=== PATIENT | male | born 1985 | race Caucasian/White ===

== ENCOUNTER 2016-11-27 15:23 | Emergency (ER) | payer OTHER ==
--- NOTE | 2016-11-27 17:23 | EDDOCDS ---
Nurse's Notes [facility] Name: Yony Cook Age: 31 yrs Sex: Male : 1985 Arrival Date: 11/27/2016 Time: 15:23 Bed I9 / 22 [facility] Diagnosis: Internal derangement of knee Presentation: 11/27 15:27 Presenting complaint: Patient states: Right knee injury while snowboarding yesterday. rs3 pain with walking and feels wobbly. Adult Sepsis Screening: The patient does not have new or worsening altered mentation. Patient's respiratory rate is less than 22. Systolic blood pressure is greater than 100. Patient has a qSOFA score of 0- Negative Sepsis Screen. Suicide/Homicide risk assessment- the patient denies having any suicidal and/or homicidal ideations and does not present with any other emotional, behavioral or mental health complaints. 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 Transition of care: patient was not received from another setting of care. 15:27 Acuity: CHELY Level 4 rs3 15:27 Method Of Arrival: Walkin/Carried/Asstd rs3 Triage Assessment: 15:30 General: Appears in no apparent distress. Pain: Location: right knee. Pt Declines HIV rs3 testing. The patient is triaged at the bedside. See Assessment in Nurses Notes section of ED record. The patient is triaged at the bedside. See Assessment in Nurses Notes section of ED record. Historical: - Allergies: mucomist (Swelling); - Home Meds: 1. none - PMHx: none; - PSHx: L collar bone surgery; - Social history: Smoking status: Patient uses tobacco products, light tobacco smoker. No barriers to communication noted, The patient speaks fluent Malian. - Family history: Not pertinent. - : The pt / caregiver states he / she is not on anticoagulants. Home medication list is obtained from. - Exposure Risk Screening:: None identified. Screenin:20 Screening information is obtained from the patient. Fall risk: At risk due to prior [facility] history of falls. Assistance ADL's: requires no assistance with activities of daily living. Abuse/DV Screen: The patient / caregiver reports he/she is: not in a situation that causes fear, pain or injury. Nutritional screening: No deficits noted. Advance Directives: Currently, there is no health care proxy. There is no active DNR order. There is no living will. There is no Power of Director Of Digital Platforms. home support is adequate. Assessment: 16:15 General: Patient ambulated to room with Marilee Fuentes RN. Musculoskeletal: Range of jmb motion intact in all extremities. 17:20 General: Patient instructed on discharge instructions. Patient asked if there were any jmb questions regarding discharge, patient stated no. Patient signed discharge instructions. Patient discharged in stable condition. . Vital Signs: 15:25 BP 153 / 79; Pulse 89; Resp 18 S; Temp 97.3; Pulse Ox 100% on R/A; Weight 104.33 kg dd6 (R); Height 74 in. (187.96 cm) (R); 17:20 BP 148 / 70; Pulse 88; Resp 18; Temp 98.0(O); Pulse Ox 99% on R/A; Pain 2/10; jmb 15:25 Body Mass Index 29.53 (104.33 kg, 187.96 cm) dd6 Vitals: 15:25 Log In Time: November 27, 2016 at 15:23. dd6 ED Course: 15:25 Patient visited by Dago Desai PCA. dd6 15:25 [facility], JUDY MELARA is Private Physician. dd6 15:25 Patient moved to Waiting dd6 15:26 Patient moved to Pre RCE dd6 15:29 Triage Initiated rs3 16:09 Patient moved to I9 / 22 jjr 16:12 [facility] ke 16:12 Patient visited by Ky Lei FNP. ke 16:12 Patient visited by Ky Lei FNP. ke 16:44 Patient visited by Ky Lei FNP. ke 17:08 Patient visited by Ky Lei FNP. ke 17:11 [facility] ke 17:16 [facility] [place] was scanned into [employer] and attached to record. zo 17:20 The patient / caregiver is instructed regarding the plan of care and ED course. jmb 17:20 No IV's were initiated during this patient's visit. No procedures done that require jmb assistance. Order Results: There are currently no results for this order. Outcome: 17:12 Discharge ordered by Provider. ke 17:20 Discharge Assessment: Patient awake, alert and oriented x 3. No cognitive and/or jmb functional deficits noted. Patient verbalized understanding of disposition instructions. Patient awake and alert. obeys commands, Oriented to person, place and time. Patient verbalized understanding of disposition instructions. Patient has no functional deficits. patient administered narcotics - no. The following High Risk Discharge criteria are identified: None. Discharged to home ambulatory, with crutches. Condition: stable. Discharge instructions given to patient, Instructed on discharge instructions, follow up and referral plans. medication usage, crutch walking, Demonstrated understanding of instructions, crutch walking, medications, Pt was receptive of discharge instructions/ teaching. Prescriptions given X 1. No special radiology studies were completed. Property sent home with patient. 17:22 Patient left the ED. nani Signatures: Ky Lei, WELLNESS TRAINER WELLNESS TRAINER Andrew Landa Jessica, RN RN jjr Dago Desai, COKEMAN COKEMAN dd6 Rosita Patricio,RN RN rs3 Jagjit Hurd,RN RN nani MTDD
--- NOTE | 2016-11-27 17:23 | EDDOCDS ---
Physician Documentation [facility] Name: Yony Cook Age: 31 yrs Sex: Male : 1985 Arrival Date: 11/27/2016 Time: 15:23 Bed I9 / 22 Private MD: JUDY BHATIA Disposition: 11/27/16 17:12 Discharged to Home/Self Care. Impression: Internal derangement of knee. - Condition is Stable. - Discharge Instructions: Knee Immobilizer, Knee Sprain, Crutch Use, [id number]. - Prescriptions for Ibuprofen 600 mg Oral Tablet - take 1 tablet by ORAL route every 6 hours As needed take with food; 30 tablet. - Medication Reconciliation, Local Pharmacy Hours form. - Follow up: Orthopaedics, [facility]; When: Call to arrange an appointment; Reason: Further diagnostic work-up, Continuance of care. - Problem is new. - Symptoms are unchanged. Historical: - Allergies: mucomist (Swelling); - Home Meds: 1. none - PMHx: none; - PSHx: L collar bone surgery; - Social history: Smoking status: Patient uses tobacco products, light tobacco smoker. No barriers to communication noted, The patient speaks fluent Vincentian. - Family history: Not pertinent. - : The pt / caregiver states he / she is not on anticoagulants. Home medication list is obtained from. - Exposure Risk Screening:: None identified. Vital Signs: 11/27 15:25 BP 153 / 79; Pulse 89; Resp 18 S; Temp 97.3; Pulse Ox 100% on R/A; Weight 104.33 kg / dd6 230.01 lbs (R); Height 74 in. (187.96 cm) (R); 17:20 BP 148 / 70; Pulse 88; Resp 18; Temp 98.0(O); Pulse Ox 99% on R/A; Pain 2/10; jmb 15:25 Body Mass Index 29.53 (104.33 kg, 187.96 cm) dd6 MDM: 16:21 Knee, Complete Ordered. EDMS 17:04 Financial registration complete. zo 17:08 Knee Immobilizer ordered. ke 17:08 Crutches ordered. ke 17:16 [facility] Payment Agreement was scanned into [employer] and attached to record. zo Signatures: Dispatcher [employer] EDMS Ky Lei, HYPO DIPPER HYPO DIPPER Andrew Landa RosemaryRN RN rs3 Jagjit HurdRN RN jmb The chart was reviewed and I authenticate all verbal orders and agree with the evaluation and treatment provided.Attachments: 17:16 [facility] Payment Agreement zo MTDD
--- NOTE | 2016-11-28 11:24 | REP ---
Right knee five views : There is no fracture or dislocation. Mineralization and joint spaces are normal. There are no calcifications or foreign bodies. Impression: Negative right knee . Signed by Sadiq Pathak MD 11/27/2016 04:51 P
--- NOTE | 2016-11-29 18:23 | EDDOCDS ---
Nurse's Notes [facility] Name: Yony Cook Age: 31 yrs Sex: Male : 1985 Arrival Date: 11/27/2016 Time: 15:23 Bed I9 / 22 [facility] Diagnosis: Internal derangement of knee Presentation: 11/27 15:27 Presenting complaint: Patient states: Right knee injury while snowboarding yesterday. rs3 pain with walking and feels wobbly. Adult Sepsis Screening: The patient does not have new or worsening altered mentation. Patient's respiratory rate is less than 22. Systolic blood pressure is greater than 100. Patient has a qSOFA score of 0- Negative Sepsis Screen. Suicide/Homicide risk assessment- the patient denies having any suicidal and/or homicidal ideations and does not present with any other emotional, behavioral or mental health complaints. 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 Transition of care: patient was not received from another setting of care. 15:27 Acuity: CHELY Level 4 rs3 15:27 Method Of Arrival: Walkin/Carried/Asstd rs3 Triage Assessment: 15:30 General: Appears in no apparent distress. Pain: Location: right knee. Pt Declines HIV rs3 testing. The patient is triaged at the bedside. See Assessment in Nurses Notes section of ED record. The patient is triaged at the bedside. See Assessment in Nurses Notes section of ED record. Historical: - Allergies: mucomist (Swelling); - Home Meds: 1. none - PMHx: none; - PSHx: L collar bone surgery; - Social history: Smoking status: Patient uses tobacco products, light tobacco smoker. No barriers to communication noted, The patient speaks fluent Algerian. - Family history: Not pertinent. - : The pt / caregiver states he / she is not on anticoagulants. Home medication list is obtained from. - Exposure Risk Screening:: None identified. Screenin:20 Screening information is obtained from the patient. Fall risk: At risk due to prior [facility] history of falls. Assistance ADL's: requires no assistance with activities of daily living. Abuse/DV Screen: The patient / caregiver reports he/she is: not in a situation that causes fear, pain or injury. Nutritional screening: No deficits noted. Advance Directives: Currently, there is no health care proxy. There is no active DNR order. There is no living will. There is no Power of Channel Opener Outsoles. home support is adequate. Assessment: 16:15 General: Patient ambulated to room with Marilee Fuentes RN. Musculoskeletal: Range of jmb motion intact in all extremities. 17:20 General: Patient instructed on discharge instructions. Patient asked if there were any jmb questions regarding discharge, patient stated no. Patient signed discharge instructions. Patient discharged in stable condition. . Vital Signs: 15:25 BP 153 / 79; Pulse 89; Resp 18 S; Temp 97.3; Pulse Ox 100% on R/A; Weight 104.33 kg dd6 (R); Height 74 in. (187.96 cm) (R); 17:20 BP 148 / 70; Pulse 88; Resp 18; Temp 98.0(O); Pulse Ox 99% on R/A; Pain 2/10; jmb 15:25 Body Mass Index 29.53 (104.33 kg, 187.96 cm) dd6 Vitals: 15:25 Log In Time: November 27, 2016 at 15:23. dd6 ED Course: 15:25 Patient visited by Dago Desai, KAMARI. dd6 15:25 [facility], JUDY CARDENAS is Private Physician. dd6 15:25 Patient moved to Waiting dd6 15:26 Patient moved to Pre RCE dd6 15:29 Triage Initiated rs3 16:09 Patient moved to I9 / 22 jjr 16:12 yK Lei FNP is [facility] ke 16:12 Patient visited by Ky Lei FNP. ke 16:12 Patient visited by Ky Lei FNP. ke 16:44 Patient visited by Ky Lei FNP. ke 17:08 Patient visited by Ky Lei FNP. ke 17:11 [facility] ke 17:16 [facility] [place] Agreement was scanned into [employer] and attached to record. zo 17:20 The patient / caregiver is instructed regarding the plan of care and ED course. jmb 17:20 No IV's were initiated during this patient's visit. No procedures done that require jmb assistance. 11/28 11:53 Knee, Complete Returned. EDMS 12:23 T-Sheet-- Draft Copy was scanned into [employer] and attached to record. Order Results: Radiology Order: Knee, Complete Test: Knee, Complete REASON FOR EXAMINATION: Trauma; Right knee five views :; ; There is no fracture or dislocation.; ; Mineralization and joint spaces are normal.; ; There are no calcifications or foreign bodies.; ; Impression:; ; Negative right knee .; ; ; Signed by; Sadiq Pathak MD 11/27/2016 04:51 P; Outcome: 11/27 17:12 Discharge ordered by Provider. ashley 17:20 Discharge Assessment: Patient awake, alert and oriented x 3. No cognitive and/or jmb functional deficits noted. Patient verbalized understanding of disposition instructions. Patient awake and alert. obeys commands, Oriented to person, place and time. Patient verbalized understanding of disposition instructions. Patient has no functional deficits. patient administered narcotics - no. The following High Risk Discharge criteria are identified: None. Discharged to home ambulatory, with crutches. Condition: stable. Discharge instructions given to patient, Instructed on discharge instructions, follow up and referral plans. medication usage, crutch walking, Demonstrated understanding of instructions, crutch walking, medications, Pt was receptive of discharge instructions/ teaching. Prescriptions given X 1. No special radiology studies were completed. Property sent home with patient. 17:22 Patient left the ED. nani Signatures: Dispatcher [employer] EDMS Katie Su, Reg Reg Ky Balderas, TRAILER PARK MANAGER TRAILER PARK MANAGER Andrew Landa Jessica, RN RN Dago Joe, PLUMBING DRAFTER PLUMBING DRAFTER dd6 Rosita Patricio,Jagjit Cook RN,RN RN nani Chart Complete MTDD
--- NOTE | 2016-11-29 18:23 | EDDOCDS ---
Physician Documentation [facility] Name: Yony Cook Age: 31 yrs Sex: Male : 1985 Arrival Date: 11/27/2016 Time: 15:23 Bed I9 / 22 Private MD: JUDY BHATIA Disposition: 11/27/16 17:12 Discharged to Home/Self Care. Impression: Internal derangement of knee. - Condition is Stable. - Discharge Instructions: Knee Immobilizer, Knee Sprain, Crutch Use, [id number]. - Prescriptions for Ibuprofen 600 mg Oral Tablet - take 1 tablet by ORAL route every 6 hours As needed take with food; 30 tablet. - Medication Reconciliation, Local Pharmacy Hours form. - Follow up: Orthopaedics, [facility]; When: Call to arrange an appointment; Reason: Further diagnostic work-up, Continuance of care. - Problem is new. - Symptoms are unchanged. Historical: - Allergies: mucomist (Swelling); - Home Meds: 1. none - PMHx: none; - PSHx: L collar bone surgery; - Social history: Smoking status: Patient uses tobacco products, light tobacco smoker. No barriers to communication noted, The patient speaks fluent Australian. - Family history: Not pertinent. - : The pt / caregiver states he / she is not on anticoagulants. Home medication list is obtained from. - Exposure Risk Screening:: None identified. Vital Signs: 11/27 15:25 BP 153 / 79; Pulse 89; Resp 18 S; Temp 97.3; Pulse Ox 100% on R/A; Weight 104.33 kg / dd6 230.01 lbs (R); Height 74 in. (187.96 cm) (R); 17:20 BP 148 / 70; Pulse 88; Resp 18; Temp 98.0(O); Pulse Ox 99% on R/A; Pain 2/10; jmb 15:25 Body Mass Index 29.53 (104.33 kg, 187.96 cm) dd6 MDM: 16:21 Knee, Complete Ordered. EDMS 17:04 Financial registration complete. zo 17:08 Knee Immobilizer ordered. ke 17:08 Crutches ordered. ke 17:16 [facility] Payment Agreement was scanned into [employer] and attached to record. zo 11/28 12:23 T-Sheet-- Draft Copy was scanned into [employer] and attached to record. gb Signatures: Dispatcher [employer] EDMS Katie Su, Reg Reg gb Ky Lei, JAYESH MARIP Andrew Landa Rosemary,RN RN rs3 Jagjit HurdRN RN jmb The chart was reviewed and I authenticate all verbal orders and agree with the evaluation and treatment provided.Attachments: 11/27 17:16 [facility] [place] Payment Agreement zo 11/28 12:23 T-Sheet-- Draft Copy gb Chart Complete MTDD
--- NOTE | 2016-11-29 18:23 | EDDOCDS ---
Physician Documentation [facility] Name: Yony Cook Age: 31 yrs Sex: Male : 1985 Arrival Date: 11/27/2016 Time: 15:23 Bed I9 / 22 Private MD: JUDY BHATIA Disposition: 11/27/16 17:12 Discharged to Home/Self Care. Impression: Internal derangement of knee. - Condition is Stable. - Discharge Instructions: Knee Immobilizer, Knee Sprain, Crutch Use, [id number]. - Prescriptions for Ibuprofen 600 mg Oral Tablet - take 1 tablet by ORAL route every 6 hours As needed take with food; 30 tablet. - Medication Reconciliation, Local Pharmacy Hours form. - Follow up: Orthopaedics, [facility]; When: Call to arrange an appointment; Reason: Further diagnostic work-up, Continuance of care. - Problem is new. - Symptoms are unchanged. Historical: - Allergies: mucomist (Swelling); - Home Meds: 1. none - PMHx: none; - PSHx: L collar bone surgery; - Social history: Smoking status: Patient uses tobacco products, light tobacco smoker. No barriers to communication noted, The patient speaks fluent Niuean. - Family history: Not pertinent. - : The pt / caregiver states he / she is not on anticoagulants. Home medication list is obtained from. - Exposure Risk Screening:: None identified. Vital Signs: 11/27 15:25 BP 153 / 79; Pulse 89; Resp 18 S; Temp 97.3; Pulse Ox 100% on R/A; Weight 104.33 kg / dd6 230.01 lbs (R); Height 74 in. (187.96 cm) (R); 17:20 BP 148 / 70; Pulse 88; Resp 18; Temp 98.0(O); Pulse Ox 99% on R/A; Pain 2/10; jmb 15:25 Body Mass Index 29.53 (104.33 kg, 187.96 cm) dd6 MDM: 16:21 Knee, Complete Ordered. EDMS 17:04 Financial registration complete. zo 17:08 Knee Immobilizer ordered. ke 17:08 Crutches ordered. ke 17:16 [facility] Payment Agreement was scanned into [employer] and attached to record. zo 11/28 12:23 T-Sheet-- Draft Copy was scanned into [employer] and attached to record. gb Signatures: Dispatcher [employer] EDMS Katie Su, Reg Reg gb Ky Lei, JAYESH MARIP Andrew Landa Rosemary,RN RN rs3 Jagjit HurdRN RN jmb The chart was reviewed and I authenticate all verbal orders and agree with the evaluation and treatment provided.Attachments: 11/27 17:16 [facility] [place] Agreement zo 11/28 12:23 T-Sheet-- Draft Copy gb Chart Complete MTDD
== END 2016-11-27 17:22 | disposition home or self-care (01) ==
LOC: M ED 15:23
DX: M23.91 Unspecified internal derangement of right knee (principal); V00.311A Fall from snowboard, initial encounter; Y92.89 Other specified places as the place of occurrence of the external cause; Y93.23 Activity, snow (alpine) (downhill) skiing, snowboarding, sledding, tobogganing and snow tubing; Y99.8 Other external cause status; Z88.8 Allergy status to other drugs, medicaments and biological substances; F17.210 Nicotine dependence, cigarettes, uncomplicated

== ENCOUNTER → 2016-12-02 | Day surgery (SDC) | payer OTHER ==
[~2016-12-02] VITALS: Ht 185.4 cm; Wt 103.9 kg
[~2016-12-02] MED LIST: BUPIVACAINE/EPIN 0.25% 30 ML VIAL As Ordered ONE; BUPIVACAINE/EPIN 0.25% 30 ML VIAL XX ONE; HYDROmorphone HCL 1 MG/ML SYRINGE (J1170) IV PRN; ISOVUE-370 76% 100ML VIAL (Q9967) As Ordered ONE; KETOROLAC 60 MG/2 ML VIAL (J1885) As Ordered ONE; LIDOCAINE 2% INJ 100 MG/5 ML SDV (FOR ANES.) As Ordered ONE; LR 1,000 ML IV SCH; METOCLOPRAMIDE INJ 10MG/2ML VIAL (J2765) As Ordered ONE; MIDAZOLAM INJ 2 MG/2 ML VIAL (J2250) As Ordered ONE; NORCO, ANEXSIA 5/325MG TABLET (HYDROcodone/ACETAMINOPHEN) PO PRN; ONDANSETRON 4MG/2ML VIAL (J2405) As Ordered ONE; ONDANSETRON 4MG/2ML VIAL (J2405) IV PRN; PERCOCET 5MG/325MG TAB As Ordered ONE; PROPOFOL 200 MG/20 ML VIAL As Ordered ONE; ROCURONIUM BROMIDE 50 MG/5 ML VIAL As Ordered ONE; SUGAMMADEX SODIUM 500 MG/5 ML VIAL (BRIDION) As Ordered ONE; ZOSYN 3.375 GM VIAL (J2543) As Ordered ONE; diphenhydrAMINE INJ 50MG/ML VIAL (J1200) As Ordered ONE; fentaNYL 100 MCG/2 ML INJECTION (J3010) As Ordered ONE; fentaNYL 100 MCG/2 ML INJECTION (J3010) IV PRN
[2016-12-02 11:37] LABS: BASO % 0.1 % (0.0-1.0); EOS # 0.1 K/mm3 (0.0-0.50); EOS % 0.7 % (0.0-3.0); LARGE UNSTAINED CELL # 0.1 K/mm3 (0.0-0.4); LARGE UNSTAINED CELL % 0.7 % (0.0-4.0); LYMPH # 1.5 K/mm3 (1.5-4.5); MEAN CORPUSCULAR HEMOGLOBIN 28.8 pg (27.0-33.0); MEAN CORPUSCULAR HGB CONC 34.1 g/dl (32.0-36.5); MEAN CORPUSCULAR VOLUME 84.5 fl (80.0-96.0); MONO # 0.6 K/mm3 (0.0-0.8); MONO % 5.6 % (0.0-5.0); NEUTROPHILS % 79.8 % (36.0-66.0); PLATELET COUNT, AUTOMATED 206 k/mm3 (150-450); RED CELL DISTRIBUTION WIDTH 12.9 % (11.5-14.5); WHITE BLOOD COUNT 11.3 K/mm3 (4.0-10.0)
[2016-12-02 11:55] LABS: ALBUMIN 4.8 GM/DL (3.2-5.2); ALBUMIN/GLOBULIN RATIO 1.23 (1.00-1.93); ALKALINE PHOSPHATASE 114 U/L (45-117); ALT/SGPT 37 U/L (12-78); AMYLASE 43 U/L (25-115); ANION GAP 7 MEQ/L (8-16); AST/SGOT 16 U/L (15-37); BILIRUBIN,DIRECT 0.2 MG/DL (0.0-0.2); BILIRUBIN,TOTAL 0.8 MG/DL (0.2-1.0); BLOOD UREA NITROGEN 13 MG/DL (7-18); CALCIUM LEVEL 9.1 MG/DL (8.5-10.1); CARBON DIOXIDE LEVEL 30 MEQ/L (21-32); CHLORIDE LEVEL 103 MEQ/L (98-107); CREATININE FOR GFR 0.96 MG/DL (0.70-1.30); GLOMERULAR FILTRATION RATE > 60.0 (>60); GLUCOSE, FASTING 94 MG/DL (70-105); POTASSIUM SERUM 3.8 MEQ/L (3.5-5.1); SODIUM LEVEL 140 MEQ/L (136-145); TOTAL PROTEIN 8.7 GM/DL (6.4-8.2)
--- NOTE | 2016-12-02 13:03 | REP ---
CT of the abdomen and pelvis with IV contrast, without bowel contrast. For appendicitis. There are no comparison studies. The visualized lung velasco are unremarkable. The hepatic parenchyma, gallbladder, pancreas, spleen, adrenals, kidneys and abdominal aorta are unremarkable. There is no bowel distension or ascites. Pelvis: The appendix is mildly distended measuring up to 8 mm diameter. There is enhancement wall thickening of the appendix and appendix overlies the right psoas muscle and there is periappendiceal inflammation. Findings are compatible with appendicitis. There is no evidence of periappendiceal abscess. There is no pelvic ascites or adenopathy. The bladder is unremarkable. The pelvic bowel loops are otherwise unremarkable. Impression: Findings are compatible with appendicitis without evidence of periappendiceal abscess. There is no ascites or pneumoperitoneum. No adenopathy. Otherwise, negative CT study of the abdomen and pelvis. Signed by Sadiq Pathak MD 12/02/2016 12:54 P
--- NOTE | 2016-12-02 15:35 | EDDOCDS ---
Physician Documentation [facility] Name: Yony Cook Age: 31 yrs Sex: Male : 1985 Arrival Date: 12/02/2016 Time: 10:09 Bed I2 / M2 Private MD: [place] [facility]position: 12/02/16 13:15 Hospitalization ordered by Sadiq Peña for Inpatient Admission. Preliminary diagnosis is Acute appendicitis with localized peritonitis. - Bed requested for 5 Valenzuela. - Status is Inpatient Admission. srm - Condition is Stable. - Problem is new. - Symptoms are unchanged. Historical: - Allergies: mucomist (Swelling); - Home Meds: 1. none - PMHx: none; - PSHx: Left clavical; - Social history: Smoking status: Patient uses tobacco products, current every day smoker. No barriers to communication noted, The patient speaks fluent Maltese. - Family history: Not pertinent. - : The pt / caregiver states he / she is not on anticoagulants. Home medication list is obtained from the patient. - Exposure Risk Screening:: None identified. Vital Signs: 12/02 10:11 BP 167 / 84; Pulse 97; Resp 18; Temp 97.9; Pulse Ox 99% ; Weight 103.87 kg / 228.99 elp lbs; Height 73 in. (185.42 cm); Pain 10/10; 13:25 BP 111 / 54; Pulse 80; Resp 18; Temp 98.7(T); Pulse Ox 96% on R/A; Pain 8/10; dem1 15:12 BP 96 / 48; Pulse 52; Resp 18; Temp 97.1(T); Pulse Ox 98% on R/A; Pain 7/10; dem1 10:11 Body Mass Index 30.21 (103.87 kg, 185.42 cm) elp MDM: 11:14 NS 0.9% 1000 ml IV at bolus once ordered. btw 11:14 IV Saline Lock ordered. btw 11:14 Undress patient appropriately for examination ordered. btw 11:14 Metoclopramide 20 mg IV at 80 mg/hr once over 15 mins ordered. btw 11:14 diphenhydrAMINE 50 mg IVP once ordered. btw 11:14 Amylase Ordered. EDMS 11:14 Basic Metabolic Profile Ordered. EDMS 11:14 CBC with Diff Ordered. EDMS 11:14 Lipase Ordered. EDMS 11:14 Liver Profile Ordered. EDMS 11:15 CT ABD & PELVIS: IV Contrast Only Ordered. EDMS 11:15 NOTHING BY MOUTH+DIET ordered. EDMS 11:19 Financial registration complete. mm15 11:38 [facility] Payment Agreement was scanned into [employer] and attached to record. mm15 12:09 Basic Metabolic Profile Reviewed. btw 12:09 CBC with Diff Reviewed. btw 12:09 Liver Profile Reviewed. btw 12:09 Amylase Reviewed. btw 12:09 Lipase Reviewed. btw 13:12 BED REQUEST+ADM ordered. EDMS 14:46 Admission Orders was scanned into [employer] and attached to record. lbd Administered Medications: 11:44 Drug: NS 0.9% 1000 ml [sodium chloride 0.9 % intravenous solution] Route: IV; Rate: kc3 bolus; Site: right antecubital; 11:44 Drug: Metoclopramide 20 mg [metoclopramide 5 mg/mL injection solution] Route: IV; Rate: kc3 80 mg/hr; Infused Over: 15 mins; Site: right antecubital; 12:16 Follow up: IV Status: Completed infusion kc3 11:44 Drug: diphenhydrAMINE 50 mg [diphenhydramine 50 mg/mL injection solution (1 mL)] Route: kc3 IVP; Site: right antecubital; 12:16 Follow up: Response: No Adverse Reaction kc3 Signatures: Dispatcher [employer]Host EDMS Nora Ferrer, Assembler Musical Instruments Unit lbd Mary Kay Ornelas, RN RN Christofer Lopez PA PA btw Florentino Donald mm15 Darlin Malik RN RN [id number] Eduarda De Leon RN RN sls2 Marilee Fuentes RN RN kc3 The chart was reviewed and I authenticate all verbal orders and agree with the evaluation and treatment provided.Attachments: 11:38 [facility] Payment Agreement mm15 14:46 Admission Orders lbd MTDD
--- NOTE | 2016-12-02 15:35 | EDDOCDS ---
Nurse's Notes [facility] Name: Yony Cook Age: 31 yrs Sex: Male : 1985 Arrival Date: 12/02/2016 Time: 10:09 Bed I2 / M2 Private MD: SUKUMAR Mendoza Diagnosis: Acute appendicitis with localized peritonitis Presentation: 12/02 10:17 Presenting complaint: Patient states: that he has severe abd pain that started ms18 yesterday at approx [id number]. Pt reports nausea, no vomiting or diarrhea. Pt also reports bad gas. Risk factors: the patient reports not having a history of previous torsion. Adult Sepsis Screening: The patient does not have new or worsening altered mentation. Patient's respiratory rate is less than 22. Systolic blood pressure is greater than 100. Patient has a qSOFA score of 0- Negative Sepsis Screen. Suicide/Homicide risk assessment- the patient denies having any suicidal and/or homicidal ideations and does not present with any other emotional, behavioral or mental health complaints. 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 Transition of care: patient was not received from another setting of care. 10:17 Acuity: CHELY Level 3 ms18 10:17 Method Of Arrival: Walkin/Carried/Asstd ms18 Triage Assessment: 10:19 General: Appears in no apparent distress, Behavior is appropriate for age, cooperative. ms18 Pain: Location: right lower quadrant Pain currently is 10 out of 10 on a pain scale. HIV screening NA for this visit Offered previously. Neurological: No deficits noted. Respiratory: No deficits noted. GI: Abdomen is non- distended Reports nausea, Denies vomiting. Derm: Skin is pink, warm & dry. normal. Historical: - Allergies: mucomist (Swelling); - Home Meds: 1. none - PMHx: none; - PSHx: Left clavical; - Social history: Smoking status: Patient uses tobacco products, current every day smoker. No barriers to communication noted, The patient speaks fluent Yoruba. - Family history: Not pertinent. - : The pt / caregiver states he / she is not on anticoagulants. Home medication list is obtained from the patient. - Exposure Risk Screening:: None identified. Screenin:14 Screening information is obtained from the patient. Fall risk: No risks identified. kc3 Assistance ADL's: requires no assistance with activities of daily living. Abuse/DV Screen: The patient / caregiver reports he/she is: not in a situation that causes fear, pain or injury. Nutritional screening: No deficits noted. Advance Directives: Currently, there is no health care proxy. home support is adequate. Assessment: 11:50 General: Appears in no apparent distress, comfortable, Behavior is appropriate for age, kc3 cooperative. Pain: Location: right lower quadrant. Neurological: Level of Consciousness is awake, alert, obeys commands, Oriented to person, place, time. Respiratory: Respiratory effort is even, unlabored. GI: Abdomen is flat, Bowel sounds present X 4 quads. Abd is soft Abdomen has rebound tenderness in right lower quadrant Reports nausea. Derm: Skin is pink, warm & dry. Musculoskeletal: Circulation, motion, and sensation intact. 13:00 General: Appears in no apparent distress, comfortable, Behavior is appropriate for age, kc3 cooperative. Pain: Location: abdomen. Neurological: Level of Consciousness is awake, alert, obeys commands, Oriented to person, place, time. Respiratory: Respiratory effort is even, unlabored. Derm: Skin is pink, warm & dry. 14:00 General: Appears in no apparent distress, comfortable, Behavior is appropriate for age, kc3 cooperative, Pt resting on stretcher with no complaints at this time. Will continue to monitor. . 14:45 General: Appears in no apparent distress, comfortable, Behavior is appropriate for age, kc3 cooperative. Neurological: No deficits noted. Respiratory: No deficits noted. Derm: Skin is pink, warm & dry. 15:27 General: Appears in no apparent distress, comfortable, Behavior is appropriate for age, kc3 cooperative, Pt updated on plan of care. No complaints at this time. Call reeves within reach. . Neurological: Level of Consciousness is awake, alert, obeys commands, Oriented to person, place, time. Respiratory: Respiratory effort is even, unlabored. Derm: Skin is pink, warm & dry. Vital Signs: 10:11 BP 167 / 84; Pulse 97; Resp 18; Temp 97.9; Pulse Ox 99% ; Weight 103.87 kg; Height 73 elp in. (185.42 cm); Pain 10/10; 13:25 BP 111 / 54; Pulse 80; Resp 18; Temp 98.7(T); Pulse Ox 96% on R/A; Pain 8/10; dem1 15:12 BP 96 / 48; Pulse 52; Resp 18; Temp 97.1(T); Pulse Ox 98% on R/A; Pain 7/10; dem1 10:11 Body Mass Index 30.21 (103.87 kg, 185.42 cm) elp Vitals: 10:11 Log In Time: December 02, 2016 at 10:05. elp ED Course: 10:10 Patient visited by Stefani Amin PCA. elp 10:10 Kelly [facility] is Private Physician. elp 10:10 Patient moved to Waiting elp 10:11 Patient visited by Stefani Amin PCA. elp 10:11 Patient moved to Pre RCE elp 10:19 Triage Initiated ms18 10:59 Patient moved to Triage 3 jjr 11:02 [facility] btw 11:02 Clayton Juarez MD is Attending Physician. btw 11:02 Patient visited by Christofer Santana PA. btw 11:13 Patient moved to I2 / M2 jb5 11:31 Amylase Sent. kc3 11:31 Basic Metabolic Profile Sent. kc3 11:31 CBC with Diff Sent. kc3 11:32 Lipase Sent. kc3 11:32 Liver Profile Sent. kc3 11:38 [facility] Payment Agreement was scanned into [employer] and attached to record. mm15 11:44 Patient visited by Marilee Fuentes RN. kc3 12:15 The patient / caregiver is instructed regarding the plan of care and ED course. kc3 12:15 Inserted saline lock: 20 gauge in right antecubital area and blood collected. The kc3 patient tolerated the procedure well. Labs drawn. (by ED staff). Sent per order to lab. 12:17 Patient visited by Marilee Fuentes RN. kc3 12:[address] dem1 12:28 Patient moved to I2 / M2 dem1 12:49 Patient visited by Marilee Fuentes,ELIZABETH. kc3 13:15 Sadiq Peña DO is Hospitalizing Provider. btw 13:19 CT ABD & PELVIS: IV Contrast Only Returned. EDMS 13:26 Patient visited by Jon Ly. dem1 14:46 Admission Orders was scanned into [employer] and attached to record. lbd 15:12 Patient visited by Jon Ly. dem1 15:33 No procedures done that require assistance. srm Administered Medications: 11:44 Drug: NS 0.9% 1000 ml [sodium chloride 0.9 % intravenous solution] Route: IV; Rate: kc3 bolus; Site: right antecubital; 11:44 Drug: Metoclopramide 20 mg [metoclopramide 5 mg/mL injection solution] Route: IV; Rate: kc3 80 mg/hr; Infused Over: 15 mins; Site: right antecubital; 12:16 Follow up: IV Status: Completed infusion kc3 11:44 Drug: diphenhydrAMINE 50 mg [diphenhydramine 50 mg/mL injection solution (1 mL)] Route: kc3 IVP; Site: right antecubital; 12:16 Follow up: Response: No Adverse Reaction kc3 Intake: 15:33 IV: 1000.00ml (NS); Total: 1000.00ml. srm Order Results: Lab Order: Amylase; SPEC'M 12/02/16 11:26 Test: AMYLASE; Value: 43; Range: 25-115; Units: U/L; Status: F Lab Order: Basic Metabolic Profile; SPEC'M 12/02/16 11:26 Test: GLUCOSE, FASTING; Value: 94; Range: 70-105; Units: MG/DL; Status: F Test: BLOOD UREA NITROGEN; Value: 13; Range: 7-18; Units: MG/DL; Status: F Test: CREATININE FOR GFR; Value: 0.96; Range: 0.70-1.30; Units: MG/DL; Status: F Test: GLOMERULAR FILTRATION RATE; Value: > 60.0; Range: >60; Status: F Test: SODIUM LEVEL; Value: 140; Range: 136-145; Units: MEQ/L; Status: F Test: POTASSIUM SERUM; Value: 3.8; Range: 3.5-5.1; Units: MEQ/L; Status: F Test: CHLORIDE LEVEL; Value: 103; Range: 98-107; Units: MEQ/L; Status: F Test: CARBON DIOXIDE LEVEL; Value: 30; Range: 21-32; Units: MEQ/L; Status: F Test: ANION GAP; Value: 7; Range: 8-16; Abnormal: Below low normal; Units: MEQ/L; Status: F Test: CALCIUM LEVEL; Value: 9.1; Range: 8.5-10.1; Units: MG/DL; Status: F Test Note: ; Units are mL/min/1.73 m2 Chronic Kidney Disease Staging per NKF: Stage I & II GFR >=60 Normal to Mildly Decreased Stage III GFR 30-59 Moderately Decreased Stage IV GFR 15-29 Severely Decreased Stage V GFR <15 Very Little GFR Left ESRD GFR <15 on SIGNAL INTELLIGENCE/ELECTRONIC WARFARE Lab Order: CBC with Diff; SPEC'M 12/02/16 11:26 Test: WHITE BLOOD COUNT; Value: 11.3; Range: 4.0-10.0; Abnormal: Above high normal; Units: K/mm3; Status: F Test: RED BLOOD COUNT; Value: 5.73; Range: 4.30-6.10; Units: M/mm3; Status: F Test: HEMOGLOBIN; Value: 16.5; Range: 14.0-18.0; Units: g/dl; Status: F Test: HEMATOCRIT; Value: 48.4; Range: 42.0-52.0; Units: %; Status: F Test: MEAN CORPUSCULAR VOLUME; Value: 84.5; Range: 80.0-96.0; Units: fl; Status: F Test: MEAN CORPUSCULAR HEMOGLOBIN; Value: 28.8; Range: 27.0-33.0; Units: pg; Status: F Test: MEAN CORPUSCULAR HGB CONC; Value: 34.1; Range: 32.0-36.5; Units: g/dl; Status: F Test: RED CELL DISTRIBUTION WIDTH; Value: 12.9; Range: 11.5-14.5; Units: %; Status: F Test: PLATELET COUNT, AUTOMATED; Value: 206; Range: 150-450; Units: k/mm3; Status: F Test: NEUTROPHILS %; Value: 79.8; Range: 36.0-66.0; Abnormal: Above high normal; Units: %; Status: F Test: LYMPH %; Value: 13.0; Range: 24.0-44.0; Abnormal: Below low normal; Units: %; Status: F Test: MONO %; Value: 5.6; Range: 0.0-5.0; Abnormal: Above high normal; Units: %; Status: F Test: EOS %; Value: 0.7; Range: 0.0-3.0; Units: %; Status: F Test: BASO %; Value: 0.1; Range: 0.0-1.0; Units: %; Status: F Test: LARGE UNSTAINED CELL %; Value: 0.7; Range: 0.0-4.0; Units: %; Status: F Test: NEUTROPHILS #; Value: 9.0; Range: 1.8-7.7; Abnormal: Above high normal; Units: K/mm3; Status: F Test: LYMPH #; Value: 1.5; Range: 1.5-4.5; Units: K/mm3; Status: F Test: MONO #; Value: 0.6; Range: 0.0-0.8; Units: K/mm3; Status: F Test: EOS #; Value: 0.1; Range: 0.0-0.50; Units: K/mm3; Status: F Test: BASO #; Value: 0.0; Range: 0.0-0.2; Units: K/mm3; Status: F Test: LARGE UNSTAINED CELL #; Value: 0.1; Range: 0.0-0.4; Units: K/mm3; Status: F Lab Order: Lipase; SPEC' 12/02/16 11:26 Test: LIPASE; Value: 181; Range: 73-393; Units: U/L; Status: F Lab Order: Liver Profile; SPEC' 12/02/16 11:26 Test: AST/SGOT; Value: 16; Range: 15-37; Units: U/L; Status: F Test: ALT/SGPT; Value: 37; Range: 12-78; Units: U/L; Status: F Test: ALKALINE PHOSPHATASE; Value: 114; Range: 45-117; Units: U/L; Status: F Test: BILIRUBIN,TOTAL; Value: 0.8; Range: 0.2-1.0; Units: MG/DL; Status: F Test: BILIRUBIN,DIRECT; Value: 0.2; Range: 0.0-0.2; Units: MG/DL; Status: F Test: TOTAL PROTEIN; Value: 8.7; Range: 6.4-8.2; Abnormal: Above high normal; Units: GM/DL; Status: F Test: ALBUMIN; Value: 4.8; Range: 3.2-5.2; Units: GM/DL; Status: F Test: ALBUMIN/GLOBULIN RATIO; Value: 1.23; Range: 1.00-1.93; Status: F Radiology Order: CT ABD & PELVIS: IV Contrast Only Test: CT ABD & PELVIS: IV Contrast Only REASON FOR EXAMINATION: Appendicitis; CT of the abdomen and pelvis with IV contrast, without bowel contrast. For; appendicitis.; ; There are no comparison studies.; ; The visualized lung velasco are unremarkable.; ; The hepatic parenchyma, gallbladder, pancreas, spleen, adrenals, kidneys and; abdominal aorta are unremarkable.; ; There is no bowel distension or ascites.; ; Pelvis:; ; The appendix is mildly distended measuring up to 8 mm diameter. There is; enhancement wall thickening of the appendix and appendix overlies the right; psoas muscle and there is periappendiceal inflammation. Findings are compatible; with appendicitis. There is no evidence of periappendiceal abscess.; ; There is no pelvic ascites or adenopathy. The bladder is unremarkable. The; pelvic bowel loops are otherwise unremarkable.; ; Impression:; ; Findings are compatible with appendicitis without evidence of periappendiceal; abscess. There is no ascites or pneumoperitoneum. No adenopathy.; ; Otherwise, negative CT study of the abdomen and pelvis.; ; ; Signed by; Sadiq Pathak MD 12/02/2016 12:54 P; Outcome: 13:15 Decision to Hospitalize by Provider. bt 15:26 CT Study completed. [facility] 15:33 Discharge Assessment: Patient awake, alert and oriented x 3. No cognitive and/or srm functional deficits noted. Patient verbalized understanding of disposition instructions. 15:34 Discharge Assessment: patient administered narcotics - no. The following High Risk srm Discharge criteria are identified: None. Admitted to OR accompanied by tech, via stretcher, with chart. Condition: stable. Property :Personal belongings accompany Pt. 15:35 Patient left the ED. srm Signatures: Dispatcher [employer] EDMS Nora Ferrer, Card Seller Unit lbd Mary Kay Ornelas RN RN srm Angle Cason, CARPET WEAVER CARPET WEAVER jb5 Janay Kessler RN RN jjr Wolfenden, Brandon, PA PA btw [place]ese[place]ia dem1 Florentino Donald mm15 Stefani Amin, KAMARI CARPET WEAVER Darlin Jean Baptiste,RN RN ms18 Marilee Fuentes,RN RN kc3 MTDD
--- NOTE | 2016-12-02 17:18 | HPE ---
DATE OF ADMISSION: 12/02/2016 REASON FOR ADMISSION: Right lower quadrant abdominal pain. HISTORY OF PRESENT ILLNESS: The patient is a 31-year-old male who started to develop right lower quadrant abdominal pain last evening, got progressively worse overnight. He had some nausea and vomiting on entering the emergency room (ER), as well as his right lower quadrant pain. No change in urination or bowel movements. White count was elevated at 11.3. He then had a CT scan which showed signs of acute appendicitis. Currently he has been getting Reglan the ER. His nausea and vomiting is controlled. However, he still is having this pain in the right lower quadrant. Denies any trauma to the area. No previous surgeries in the past. PAST MEDICAL HISTORY: Negative. PAST SURGICAL HISTORY: Clavicle surgery. ALLERGIES: MUCOMYST MEDICATIONS: None. SOCIAL HISTORY: Smokes a pack a day. REVIEW OF SYSTEMS Pertinent positives and negatives as stated in the history of present illness (HPI). PHYSICAL EXAMINATION: GENERAL: Alert and oriented times three. No acute stress. VITAL SIGNS: Stable, afebrile. HEENT: Pupils equal round react to light and accommodation. HEART: S1, S2, regular rate and rhythm, LUNGS: Clear to auscultation bilaterally. ABDOMEN: Soft, nondistended. Tender to palpation over the right lower quadrant. No rebound, guarding, rigidity. Bowel sounds positive. EXTREMITIES: No clubbing, cyanosis or edema. LABORATORY DATA: White count 11.3, platelets 206. Potassium 3.8. IMAGING: CT abdomen and pelvis was completed which shows findings of acute appendicitis with a dilated appendix at 8 mm. There is wall thickening and surrounding fat stranding. No signs of abscess. ASSESSMENT AND PLAN: The patient is a 31-year-old male with signs of acute appendicitis. Recommendation is to proceed with laparoscopic, possible open appendectomy. Risks and benefits of the procedure not limited but including bleeding, infection, hernia formation, damage to surrounding structures, need for further surgery discussed in detail with the patient. Informed consent was obtained, and the procedure was planned. LATHA
[2016-12-02] MEDS: PERCOCET 5MG/325MG TAB PO PRN ×2 (17:50→18:10)
[2016-12-02 19:40] VITALS: BP 144/76
--- NOTE | 2016-12-03 09:39 | RO ---
DATE OF PROCEDURE: 12/02/2016 PREOPERATIVE DIAGNOSIS: Appendicitis. POSTOPERATIVE DIAGNOSIS: Appendicitis. PROCEDURE: Laparoscopic appendectomy. SURGEON: Dr. Sadiq Peña. PLATE EMBOSSER: None. ANESTHESIA: General. ESTIMATED BLOOD LOSS: 5. COMPLICATIONS: None. INDICATIONS FOR PROCEDURE: The patient is a 31-year-old male who presents with right lower quadrant abdominal pain that started yesterday evening. He was found to have acute appendicitis on physical exam and on CAT scan. Recommendation was to proceed with laparoscopic, possible open appendectomy. The risks and benefits of the procedure not limited to, but including bleeding, infection, hernia formation, damage to surrounding structures, and need for further surgery were discussed in detail with the patient. Informed consent was obtained and the procedure was planned. PROCEDURE: The patient was brought back to operating room eight. After sufficient sedation, the abdomen was sterilely prepped and draped. Next, a time out was done to confirm proper patient and proper procedure. Following that, a 5 mm incision was made in the left lower quadrant. Veress needle was inserted and the abdomen was insufflated to 15 mmHg. Next, the Veress needle was removed and a 5 mm OptiView port was used to gain access to the abdomen in the left upper quadrant. 8 mm port was then placed infraumbilical and a 5 mm suprapubic port in the midline were placed. The right lower quadrant was then examined. The appendix was found retrocecally and carefully dissected free using Enseal. Once it was completely dissected free all the way to the base, the base was ligated twice with PDS Endoloops. It was then amputated using the Enseal and brought out with a 5 mm EndoCatch bag through the umbilical port site. The abdomen was then desufflated. Skin incision closed with #4-0 Vicryl subcuticular sutures. The abdomen was cleaned and dried. Steri-Strips, 4x4 and tape were applied, thus ending the procedure.
--- NOTE | 2016-12-04 16:35 | EDDOCDS ---
Physician Documentation [facility] Name: Yony Cook Age: 31 yrs Sex: Male : 1985 Arrival Date: 12/02/2016 Time: 10:09 Bed I2 / M2 Private MD: Kelly [facility] [place] Disposition: 12/02/16 13:15 Hospitalization ordered by Sadiq Peña for Inpatient Admission. Preliminary diagnosis is Acute appendicitis with localized peritonitis. - Bed requested for 5 Valenzuela. - Status is Inpatient Admission. srm - Condition is Stable. - Problem is new. - Symptoms are unchanged. Historical: - Allergies: mucomist (Swelling); - Home Meds: 1. none - PMHx: none; - PSHx: Left clavical; - Social history: Smoking status: Patient uses tobacco products, current every day smoker. No barriers to communication noted, The patient speaks fluent Croatian. - Family history: Not pertinent. - : The pt / caregiver states he / she is not on anticoagulants. Home medication list is obtained from the patient. - Exposure Risk Screening:: None identified. Vital Signs: 12/02 10:11 BP 167 / 84; Pulse 97; Resp 18; Temp 97.9; Pulse Ox 99% ; Weight 103.87 kg / 228.99 elp lbs; Height 73 in. (185.42 cm); Pain 10/10; 13:25 BP 111 / 54; Pulse 80; Resp 18; Temp 98.7(T); Pulse Ox 96% on R/A; Pain 8/10; dem1 15:12 BP 96 / 48; Pulse 52; Resp 18; Temp 97.1(T); Pulse Ox 98% on R/A; Pain 7/10; dem1 10:11 Body Mass Index 30.21 (103.87 kg, 185.42 cm) elp MDM: 11:14 NS 0.9% 1000 ml IV at bolus once ordered. btw 11:14 IV Saline Lock ordered. btw 11:14 Undress patient appropriately for examination ordered. btw 11:14 Metoclopramide 20 mg IV at 80 mg/hr once over 15 mins ordered. btw 11:14 diphenhydrAMINE 50 mg IVP once ordered. btw 11:14 Amylase Ordered. EDMS 11:14 Basic Metabolic Profile Ordered. EDMS 11:14 CBC with Diff Ordered. EDMS 11:14 Lipase Ordered. EDMS 11:14 Liver Profile Ordered. EDMS 11:15 CT ABD & PELVIS: IV Contrast Only Ordered. EDMS 11:15 NOTHING BY MOUTH+DIET ordered. EDMS 11:19 Financial registration complete. mm15 11:38 [facility] Payment Agreement was scanned into [employer] and attached to record. mm15 12:09 Basic Metabolic Profile Reviewed. btw 12:09 CBC with Diff Reviewed. btw 12:09 Liver Profile Reviewed. btw 12:09 Amylase Reviewed. btw 12:09 Lipase Reviewed. btw 13:12 BED REQUEST+ADM ordered. EDMS 14:46 Admission Orders was scanned into [employer] and attached to record. lbd 17:40 T-Sheet-- Draft Copy was scanned into [employer] and attached to record. klr Administered Medications: 11:44 Drug: NS 0.9% 1000 ml [sodium chloride 0.9 % intravenous solution] Route: IV; Rate: kc3 bolus; Site: right antecubital; 11:44 Drug: Metoclopramide 20 mg [metoclopramide 5 mg/mL injection solution] Route: IV; Rate: kc3 80 mg/hr; Infused Over: 15 mins; Site: right antecubital; 12:16 Follow up: IV Status: Completed infusion kc3 11:44 Drug: diphenhydrAMINE 50 mg [diphenhydramine 50 mg/mL injection solution (1 mL)] Route: kc3 IVP; Site: right antecubital; 12:16 Follow up: Response: No Adverse Reaction kc3 Signatures: Dispatcher [employer] EDMS Nora Ferrer, Custom Marine Canvas Fabricator Unit lbd Mary Kay Ornelas RN RN Christofer Lopez PA PA btw Florentino Donald mm15 Darlin Malik RN RN ms18 Eduarda De Leon RN RN sls2 Marilee Fuentes RN RN kc3 Luciana Bowens The chart was reviewed and I authenticate all verbal orders and agree with the evaluation and treatment provided.Attachments: 11:38 [facility] Payment Agreement mm15 14:46 Admission Orders lbd 17:40 T-Sheet-- Draft Copy klr Chart Complete MTDD
--- NOTE | 2016-12-04 16:35 | EDDOCDS ---
Nurse's Notes [facility] Name: Yony Cook Age: 31 yrs Sex: Male : 1985 Arrival Date: 12/02/2016 Time: 10:09 Bed I2 / M2 Private MD: SUKUMAR Mendoza Diagnosis: Acute appendicitis with localized peritonitis Presentation: 12/02 10:17 Presenting complaint: Patient states: that he has severe abd pain that started ms18 yesterday at approx [id number]. Pt reports nausea, no vomiting or diarrhea. Pt also reports bad gas. Risk factors: the patient reports not having a history of previous torsion. Adult Sepsis Screening: The patient does not have new or worsening altered mentation. Patient's respiratory rate is less than 22. Systolic blood pressure is greater than 100. Patient has a qSOFA score of 0- Negative Sepsis Screen. Suicide/Homicide risk assessment- the patient denies having any suicidal and/or homicidal ideations and does not present with any other emotional, behavioral or mental health complaints. 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 Transition of care: patient was not received from another setting of care. 10:17 Acuity: CHELY Level 3 ms18 10:17 Method Of Arrival: Walkin/Carried/Asstd ms18 Triage Assessment: 10:19 General: Appears in no apparent distress, Behavior is appropriate for age, cooperative. ms18 Pain: Location: right lower quadrant Pain currently is 10 out of 10 on a pain scale. HIV screening NA for this visit Offered previously. Neurological: No deficits noted. Respiratory: No deficits noted. GI: Abdomen is non- distended Reports nausea, Denies vomiting. Derm: Skin is pink, warm & dry. normal. Historical: - Allergies: mucomist (Swelling); - Home Meds: 1. none - PMHx: none; - PSHx: Left clavical; - Social history: Smoking status: Patient uses tobacco products, current every day smoker. No barriers to communication noted, The patient speaks fluent Kiswahili. - Family history: Not pertinent. - : The pt / caregiver states he / she is not on anticoagulants. Home medication list is obtained from the patient. - Exposure Risk Screening:: None identified. Screenin:14 Screening information is obtained from the patient. Fall risk: No risks identified. kc3 Assistance ADL's: requires no assistance with activities of daily living. Abuse/DV Screen: The patient / caregiver reports he/she is: not in a situation that causes fear, pain or injury. Nutritional screening: No deficits noted. Advance Directives: Currently, there is no health care proxy. home support is adequate. Assessment: 11:50 General: Appears in no apparent distress, comfortable, Behavior is appropriate for age, kc3 cooperative. Pain: Location: right lower quadrant. Neurological: Level of Consciousness is awake, alert, obeys commands, Oriented to person, place, time. Respiratory: Respiratory effort is even, unlabored. GI: Abdomen is flat, Bowel sounds present X 4 quads. Abd is soft Abdomen has rebound tenderness in right lower quadrant Reports nausea. Derm: Skin is pink, warm & dry. Musculoskeletal: Circulation, motion, and sensation intact. 13:00 General: Appears in no apparent distress, comfortable, Behavior is appropriate for age, kc3 cooperative. Pain: Location: abdomen. Neurological: Level of Consciousness is awake, alert, obeys commands, Oriented to person, place, time. Respiratory: Respiratory effort is even, unlabored. Derm: Skin is pink, warm & dry. 14:00 General: Appears in no apparent distress, comfortable, Behavior is appropriate for age, kc3 cooperative, Pt resting on stretcher with no complaints at this time. Will continue to monitor. . 14:45 General: Appears in no apparent distress, comfortable, Behavior is appropriate for age, kc3 cooperative. Neurological: No deficits noted. Respiratory: No deficits noted. Derm: Skin is pink, warm & dry. 15:27 General: Appears in no apparent distress, comfortable, Behavior is appropriate for age, kc3 cooperative, Pt updated on plan of care. No complaints at this time. Call reeves within reach. . Neurological: Level of Consciousness is awake, alert, obeys commands, Oriented to person, place, time. Respiratory: Respiratory effort is even, unlabored. Derm: Skin is pink, warm & dry. Vital Signs: 10:11 BP 167 / 84; Pulse 97; Resp 18; Temp 97.9; Pulse Ox 99% ; Weight 103.87 kg; Height 73 elp in. (185.42 cm); Pain 10/10; 13:25 BP 111 / 54; Pulse 80; Resp 18; Temp 98.7(T); Pulse Ox 96% on R/A; Pain 8/10; dem1 15:12 BP 96 / 48; Pulse 52; Resp 18; Temp 97.1(T); Pulse Ox 98% on R/A; Pain 7/10; dem1 10:11 Body Mass Index 30.21 (103.87 kg, 185.42 cm) elp Vitals: 10:11 Log In Time: December 02, 2016 at 10:05. elp ED Course: 10:10 Patient visited by Stefani Amin PCA. elp 10:10 [place] [facility] [place]. elp 10:10 Patient moved to Waiting elp 10:11 Patient visited by Stefani Amin PCA. elp 10:11 Patient moved to Pre RCE elp 10:19 Triage Initiated ms18 10:59 Patient moved to Triage 3 jjr 11:02 [facility] btw 11:02 Clayton Juarez MD is Attending Physician. btw 11:02 Patient visited by Christofer Santana PA. btw 11:13 Patient moved to I2 / M2 jb5 11:31 Amylase Sent. kc3 11:31 Basic Metabolic Profile Sent. kc3 11:31 CBC with Diff Sent. kc3 11:32 Lipase Sent. kc3 11:32 Liver Profile Sent. kc3 11:38 [facility] Payment Agreement was scanned into [email or web address] and attached to record. mm15 11:44 Patient visited by Marilee Fuentes RN. kc3 12:15 The patient / caregiver is instructed regarding the plan of care and ED course. kc3 12:15 Inserted saline lock: 20 gauge in right antecubital area and blood collected. The kc3 patient tolerated the procedure well. Labs drawn. (by ED staff). Sent per order to lab. 12:17 Patient visited by Marilee Fuentes RN. kc3 12:[address] dem1 12:28 Patient moved to I2 / M2 dem1 12:49 Patient visited by Marilee Fuentes,ELIZABETH. kc3 13:15 Sadiq Peña DO is Hospitalizing Provider. btw 13:19 CT ABD & PELVIS: IV Contrast Only Returned. EDMS 13:26 Patient visited by Jon Ly. dem1 14:46 Admission Orders was scanned into [email or web address] and attached to record. lbd 15:12 Patient visited by Jon Ly. dem1 15:33 No procedures done that require assistance. srm 17:40 T-Sheet-- Draft Copy was scanned into [email or web address] and attached to record. klr Administered Medications: 11:44 Drug: NS 0.9% 1000 ml [sodium chloride 0.9 % intravenous solution] Route: IV; Rate: kc3 bolus; Site: right antecubital; 11:44 Drug: Metoclopramide 20 mg [metoclopramide 5 mg/mL injection solution] Route: IV; Rate: kc3 80 mg/hr; Infused Over: 15 mins; Site: right antecubital; 12:16 Follow up: IV Status: Completed infusion kc3 11:44 Drug: diphenhydrAMINE 50 mg [diphenhydramine 50 mg/mL injection solution (1 mL)] Route: kc3 IVP; Site: right antecubital; 12:16 Follow up: Response: No Adverse Reaction kc3 Intake: 15:33 IV: 1000.00ml (NS); Total: 1000.00ml. srm Order Results: Lab Order: Amylase; [facility] 12/02/16 11:26 Test: AMYLASE; Value: 43; Range: 25-115; Units: U/L; Status: F Lab Order: Basic Metabolic Profile; [facility] 12/02/16 11:26 Test: GLUCOSE, FASTING; Value: 94; Range: 70-105; Units: MG/DL; Status: F Test: BLOOD UREA NITROGEN; Value: 13; Range: 7-18; Units: MG/DL; Status: F Test: CREATININE FOR GFR; Value: 0.96; Range: 0.70-1.30; Units: MG/DL; Status: F Test: GLOMERULAR FILTRATION RATE; Value: > 60.0; Range: >60; Status: F Test: SODIUM LEVEL; Value: 140; Range: 136-145; Units: MEQ/L; Status: F Test: POTASSIUM SERUM; Value: 3.8; Range: 3.5-5.1; Units: MEQ/L; Status: F Test: CHLORIDE LEVEL; Value: 103; Range: 98-107; Units: MEQ/L; Status: F Test: CARBON DIOXIDE LEVEL; Value: 30; Range: 21-32; Units: MEQ/L; Status: F Test: ANION GAP; Value: 7; Range: 8-16; Abnormal: Below low normal; Units: MEQ/L; Status: F Test: CALCIUM LEVEL; Value: 9.1; Range: 8.5-10.1; Units: MG/DL; Status: F Test Note: ; Units are mL/min/1.73 m2 Chronic Kidney Disease Staging per NKF: Stage I & II GFR >=60 Normal to Mildly Decreased Stage III GFR 30-59 Moderately Decreased Stage IV GFR 15-29 Severely Decreased Stage V GFR <15 Very Little GFR Left ESRD GFR <15 on INDUSTRIAL CONTROLLER Lab Order: CBC with Diff; SPEC'M 12/02/16 11:26 Test: WHITE BLOOD COUNT; Value: 11.3; Range: 4.0-10.0; Abnormal: Above high normal; Units: K/mm3; Status: F Test: RED BLOOD COUNT; Value: 5.73; Range: 4.30-6.10; Units: M/mm3; Status: F Test: HEMOGLOBIN; Value: 16.5; Range: 14.0-18.0; Units: g/dl; Status: F Test: HEMATOCRIT; Value: 48.4; Range: 42.0-52.0; Units: %; Status: F Test: MEAN CORPUSCULAR VOLUME; Value: 84.5; Range: 80.0-96.0; Units: fl; Status: F Test: MEAN CORPUSCULAR HEMOGLOBIN; Value: 28.8; Range: 27.0-33.0; Units: pg; Status: F Test: MEAN CORPUSCULAR HGB CONC; Value: 34.1; Range: 32.0-36.5; Units: g/dl; Status: F Test: RED CELL DISTRIBUTION WIDTH; Value: 12.9; Range: 11.5-14.5; Units: %; Status: F Test: PLATELET COUNT, AUTOMATED; Value: 206; Range: 150-450; Units: k/mm3; Status: F Test: NEUTROPHILS %; Value: 79.8; Range: 36.0-66.0; Abnormal: Above high normal; Units: %; Status: F Test: LYMPH %; Value: 13.0; Range: 24.0-44.0; Abnormal: Below low normal; Units: %; Status: F Test: MONO %; Value: 5.6; Range: 0.0-5.0; Abnormal: Above high normal; Units: %; Status: F Test: EOS %; Value: 0.7; Range: 0.0-3.0; Units: %; Status: F Test: BASO %; Value: 0.1; Range: 0.0-1.0; Units: %; Status: F Test: LARGE UNSTAINED CELL %; Value: 0.7; Range: 0.0-4.0; Units: %; Status: F Test: NEUTROPHILS #; Value: 9.0; Range: 1.8-7.7; Abnormal: Above high normal; Units: K/mm3; Status: F Test: LYMPH #; Value: 1.5; Range: 1.5-4.5; Units: K/mm3; Status: F Test: MONO #; Value: 0.6; Range: 0.0-0.8; Units: K/mm3; Status: F Test: EOS #; Value: 0.1; Range: 0.0-0.50; Units: K/mm3; Status: F Test: BASO #; Value: 0.0; Range: 0.0-0.2; Units: K/mm3; Status: F Test: LARGE UNSTAINED CELL #; Value: 0.1; Range: 0.0-0.4; Units: K/mm3; Status: F Lab Order: Lipase; [facility] 12/02/16 11:26 Test: LIPASE; Value: 181; Range: 73-393; Units: U/L; Status: F Lab Order: Liver Profile; [facility] 12/02/16 11:26 Test: AST/SGOT; Value: 16; Range: 15-37; Units: U/L; Status: F Test: ALT/SGPT; Value: 37; Range: 12-78; Units: U/L; Status: F Test: ALKALINE PHOSPHATASE; Value: 114; Range: 45-117; Units: U/L; Status: F Test: BILIRUBIN,TOTAL; Value: 0.8; Range: 0.2-1.0; Units: MG/DL; Status: F Test: BILIRUBIN,DIRECT; Value: 0.2; Range: 0.0-0.2; Units: MG/DL; Status: F Test: TOTAL PROTEIN; Value: 8.7; Range: 6.4-8.2; Abnormal: Above high normal; Units: GM/DL; Status: F Test: ALBUMIN; Value: 4.8; Range: 3.2-5.2; Units: GM/DL; Status: F Test: ALBUMIN/GLOBULIN RATIO; Value: 1.23; Range: 1.00-1.93; Status: F Radiology Order: CT ABD & PELVIS: IV Contrast Only Test: CT ABD & PELVIS: IV Contrast Only REASON FOR EXAMINATION: Appendicitis; CT of the abdomen and pelvis with IV contrast, without bowel contrast. For; appendicitis.; ; There are no comparison studies.; ; The visualized lung velasco are unremarkable.; ; The hepatic parenchyma, gallbladder, pancreas, spleen, adrenals, kidneys and; abdominal aorta are unremarkable.; ; There is no bowel distension or ascites.; ; Pelvis:; ; The appendix is mildly distended measuring up to 8 mm diameter. There is; enhancement wall thickening of the appendix and appendix overlies the right; psoas muscle and there is periappendiceal inflammation. Findings are compatible; with appendicitis. There is no evidence of periappendiceal abscess.; ; There is no pelvic ascites or adenopathy. The bladder is unremarkable. The; pelvic bowel loops are otherwise unremarkable.; ; Impression:; ; Findings are compatible with appendicitis without evidence of periappendiceal; abscess. There is no ascites or pneumoperitoneum. No adenopathy.; ; Otherwise, negative CT study of the abdomen and pelvis.; ; ; Signed by; Sadiq Pathak MD 12/02/2016 12:54 P; Outcome: 13:15 Decision to Hospitalize by Provider. btw 15:26 CT Study completed. kc3 15:33 Discharge Assessment: Patient awake, alert and oriented x 3. No cognitive and/or srm functional deficits noted. Patient verbalized understanding of disposition instructions. 15:34 Discharge Assessment: patient administered narcotics - no. The following High Risk srm Discharge criteria are identified: None. Admitted to OR accompanied by tech, via stretcher, with chart. Condition: stable. Property :Personal belongings accompany Pt. 15:35 Patient left the ED. srm Signatures: Dispatcher [employer] EDMS Nora Ferrer, Harmonica Maker Unit lbd Mary Kay Ornelas RN RN Angle [place], ENDOSCOPY TECH ENDOSCOPY TECH jb5 Janay Kessler, RN RN jjr Christofer Santana PA PA btw Jon Ly dem1 Florentino Donald mm15 Stefani Amin, ENDOSCOPY TECH ENDOSCOPY TECH geraldinep Darlin Malik,RN RN ms18 Marilee Fuentes,RN RN kc3 Luciana Bowens Chart Complete MTDD
--- NOTE | 2016-12-04 16:35 | EDDOCDS ---
Physician Documentation [facility] Name: Yony Cook Age: 31 yrs Sex: Male : 1985 Arrival Date: 12/02/2016 Time: 10:09 Bed I2 / M2 Private MD: Kelly [facility] [place] Disposition: 12/02/16 13:15 Hospitalization ordered by Sadiq Peña for Inpatient Admission. Preliminary diagnosis is Acute appendicitis with localized peritonitis. - Bed requested for 5 Valenzuela. - Status is Inpatient Admission. srm - Condition is Stable. - Problem is new. - Symptoms are unchanged. Historical: - Allergies: mucomist (Swelling); - Home Meds: 1. none - PMHx: none; - PSHx: Left clavical; - Social history: Smoking status: Patient uses tobacco products, current every day smoker. No barriers to communication noted, The patient speaks fluent Malawian. - Family history: Not pertinent. - : The pt / caregiver states he / she is not on anticoagulants. Home medication list is obtained from the patient. - Exposure Risk Screening:: None identified. Vital Signs: 12/02 10:11 BP 167 / 84; Pulse 97; Resp 18; Temp 97.9; Pulse Ox 99% ; Weight 103.87 kg / 228.99 elp lbs; Height 73 in. (185.42 cm); Pain 10/10; 13:25 BP 111 / 54; Pulse 80; Resp 18; Temp 98.7(T); Pulse Ox 96% on R/A; Pain 8/10; dem1 15:12 BP 96 / 48; Pulse 52; Resp 18; Temp 97.1(T); Pulse Ox 98% on R/A; Pain 7/10; dem1 10:11 Body Mass Index 30.21 (103.87 kg, 185.42 cm) elp MDM: 11:14 NS 0.9% 1000 ml IV at bolus once ordered. btw 11:14 IV Saline Lock ordered. btw 11:14 Undress patient appropriately for examination ordered. btw 11:14 Metoclopramide 20 mg IV at 80 mg/hr once over 15 mins ordered. btw 11:14 diphenhydrAMINE 50 mg IVP once ordered. btw 11:14 Amylase Ordered. EDMS 11:14 Basic Metabolic Profile Ordered. EDMS 11:14 CBC with Diff Ordered. EDMS 11:14 Lipase Ordered. EDMS 11:14 Liver Profile Ordered. EDMS 11:15 CT ABD & PELVIS: IV Contrast Only Ordered. EDMS 11:15 NOTHING BY MOUTH+DIET ordered. EDMS 11:19 Financial registration complete. mm15 11:38 [facility] Payment Agreement was scanned into [employer] and attached to record. mm15 12:09 Basic Metabolic Profile Reviewed. btw 12:09 CBC with Diff Reviewed. btw 12:09 Liver Profile Reviewed. btw 12:09 Amylase Reviewed. btw 12:09 Lipase Reviewed. btw 13:12 BED REQUEST+ADM ordered. EDMS 14:46 Admission Orders was scanned into [employer] and attached to record. lbd 17:40 T-Sheet-- Draft Copy was scanned into [employer] and attached to record. klr Administered Medications: 11:44 Drug: NS 0.9% 1000 ml [sodium chloride 0.9 % intravenous solution] Route: IV; Rate: kc3 bolus; Site: right antecubital; 11:44 Drug: Metoclopramide 20 mg [metoclopramide 5 mg/mL injection solution] Route: IV; Rate: kc3 80 mg/hr; Infused Over: 15 mins; Site: right antecubital; 12:16 Follow up: IV Status: Completed infusion kc3 11:44 Drug: diphenhydrAMINE 50 mg [diphenhydramine 50 mg/mL injection solution (1 mL)] Route: kc3 IVP; Site: right antecubital; 12:16 Follow up: Response: No Adverse Reaction kc3 Signatures: Dispatcher [employer] EDMS Nora Ferrer, Grapple Operator Unit lbd Mary Kay Ornelas RN RN Christofer Lopez PA PA btw Florentino Donald mm15 Darlin Malik RN RN ms18 Eduarda De Leon RN RN sls2 Marilee Fuentes RN RN kc3 Luciana Bowens The chart was reviewed and I authenticate all verbal orders and agree with the evaluation and treatment provided.Attachments: 11:38 [facility] Payment Agreement mm15 14:46 Admission Orders lbd 17:40 T-Sheet-- Draft Copy klr Chart Complete MTDD
== END | disposition home or self-care (01) ==
LOC: M ED 10:09 → M SDC 14:03
PROVIDERS: ATTEND Surgery
DX: K35.89 Other acute appendicitis (principal); F17.210 Nicotine dependence, cigarettes, uncomplicated
CPT/HCPCS: 36415; 44970; 74177; 80048; 80076; 82150; 83690; 85025; 88304; 96365; 96375; 99285; J1200; J1885; J2250; J2405; J2543; J2765; J3010; Q9967

== ENCOUNTER → 2017-02-01 | Outpatient (REF) | payer OTHER ==
[2017-02-01 15:18] LABS: % NORMAL FORMS 21 % (>=4); IMMOTILITY 15 %; NON PROGRESSIVE MOTILITY (c) 17 %; PROGRESSIVE MOTILITY (a) 68 % (>=32); SPERM# 53.8 M/Ejac (33-46); TOTAL FUNCTIONAL 14.7 M/Ejac.; TOTAL MOTILITY 85 % (>=40); TOTAL PROGRESSIVE SPERM 36.7 M/Ejac.
== END ==
LOC: M LAB REF 14:51
PROVIDERS: ATTEND Physician Assistant Medical
DX: N46.9 Male infertility, unspecified (principal)